=== PATIENT | female | born 1950 | race Caucasian/White ===

== ENCOUNTER 2022-12-11 18:32 | Emergency (ER) | payer MEDICARE ==
[2022-12-11] MEDS ORDERED: Morphine 4 MG/ML VIAL ONE (19:19)
[2022-12-11] MEDS ORDERED: Ondansetron PF 4 MG/2 ML Vial ONE (19:47)
[2022-12-11 20:00] LABS: #Eosinphils 0.1 thou/uL (0.0-0.7); #Monocytes 0.4 thou/uL (0.11-0.59); #Neutrophils 13.8 thou/uL (1.40-6.50); %Basophils 0.2 % (0.0-1.0); %Eosinophils 0.3 % (0.0-10.0); %Lymphocytes 6.2 % (21.0-51.0); %Monocytes 2.7 % (0.0-10.0); %Neutrophils 90.3 % (42.0-75.0); Hematocrit 39.9 % (36.0-47.0); Hemoglobin 13.1 g/dL (12.0-16.0); Mean Corpuscular HGB CONC 32.8 g/dL (32.0-36.0); Mean Corpuscular Hemoglobin 29.8 pg (27.0-31.0); Mean Corpuscular Volume 90.7 fl (78.0-98.0); Mean Platelet Volume 9.3 fL (7.4-10.4); Platelet Count 423 10x3/uL (130-400); RBC Distribution Width 12.9 % (11.5-14.5); White Blood Cell (WBC) Count 15.3 10x3/uL (4.8-10.8)
[2022-12-11 20:14] LABS: PTT 23.7 sec (22.9-36.1); Prothrombin Time 13.7 sec (12.0-14.7)
[2022-12-11 20:27] LABS: ALT (SGPT) 27 U/L (8-55); AST (SGOT) 26 U/L (5-34); Albumin 4.4 g/dL (3.4-4.8); Alkaline Phosphatase 113 U/L (40-110); Anion Gap 18 mmol/L (10-20); BUN (Urea Nitrogen) 46 mg/dL (9.8-20.1); Bilirubin, Total 1.9 mg/dL (0.2-1.2); Calc. Creatinine Clearance 0 mL/min (70-130); Calcium 10.4 mg/dL (7.8-10.44); Carbon Dioxide 22 mmol/L (23-31); Chloride 95 mmol/L (98-107); Estimated GFR 28; Globulin 3.9 g/dL (2.4-3.5); Glucose 194 mg/dL (83-110); Lipase 20 U/L (8-78); Magnesium 1.9 mg/dL (1.6-2.6); Potassium 4.7 mmol/L (3.5-5.1); Protein, Total 8.3 g/dL (5.8-8.1); Sodium 130 mmol/L (136-145)
[2022-12-11 20:28] LABS: Troponin I Less than 0.010 ng/mL (< 0.028)
[2022-12-11] MEDS ORDERED: Piperacillin/Tazobactam 3.375 GM VIAL ONE (20:34)
[2022-12-11] MEDS ORDERED: Vancomycin 1 GM/200 ML (FROZEN) BAG ONE (21:23)
== END 2022-12-11 23:59 | disposition short-term general hospital (02) ==
LOC: ERS 18:32
DX: S81.802A Unspecified open wound, left lower leg, initial encounter (principal); A41.9 Sepsis, unspecified organism; L08.9 Local infection of the skin and subcutaneous tissue, unspecified; R53.1 Weakness; E11.9 Type 2 diabetes mellitus without complications; I48.91 Unspecified atrial fibrillation; Z79.899 Other long term (current) drug therapy
CPT/HCPCS: 71045; 73630; 74176; 83605; 83690; 83735; 83880; 84484; 85610; 85730; 87040; 93005; J3370; 36415; 80053; 84443; 85025; 96374; 96375; J2270; J2405; J2543